=== PATIENT | male | born 1950 | race Hispanic/Latino ===

== ENCOUNTER 2017-12-13 17:45 | Emergency (ER) | payer OTHER ==
[2017-12-13] MEDS ORDERED: ONDANSETRON 4 MG/2 ML VIAL ONE (18:35)
--- NOTE | 2017-12-13 18:37 | RAD REPORT ---
EXAM DESCRIPTION: CT - Stone Protocol - 12/13/2017 6:20 pm CLINICAL HISTORY: Abdominal pain. Right-sided abdominal pain with nausea COMPARISON: None. TECHNIQUE: Computed axial tomography of the abdomen pelvis was obtained without oral or IV contrast. Lack of IV and oral contrast limits evaluation of solid organs, bowel, and vessels. Coronal reformat [place] images were obtained and reviewed. All CT scans are performed using dose optimization technique as appropriate and may include automated exposure control or mA/KV adjustment according to patient size. FINDINGS: A 2 millimeter right renal calculus is present without hydronephrosis. An ureteral calculu s is not noted. A bladder calculus is not present. The liver, spleen, pancreas and adrenals appear grossly normal There is no evidence of diverticulitis. The appendix appears normal IMPRESSION: Small nonobstructing right renal calculus
[2017-12-13 18:51] LABS: Urine Bacteria <20 /HPF (NONE SEEN); Urine RBC <5 /HPF (NONE SEEN)
[2017-12-13 18:52] LABS: Urine Amorphous Sediment 1+ /HPF (NONE SEEN); Urine Culture Reflex Order NOT NEEDED; Urine Mucus NS /HPF (NONE SEEN)
[2017-12-13 19:00] LABS: Urine Blood NEGATIVE (NEG); Urine Glucose NEGATIVE (NEG); Urine Protein NEGATIVE (NEG); Urine Specific Gravity 1.015 (1.005-1.030)
[2017-12-13 19:10] LABS: Absolute Lymphocytes (CBC) 1.7 K/uL (0.7-4.9); Absolute Monocytes 0.5 K/uL (0.1-1.3); Absolute Neutrophil 2.5 K/uL (1.8-8.0); Basophils % 0.7 % (0-1.3); Eosinophils % 3.6 % (0-4.4); Hematocrit 42.1 % (39.6-49.0); Lymphocytes % 34.8 % (15.3-44.8); MCV 89.7 fL (80-100); MPV 9.5 fL (7.6-11.3); Monocytes % 10.4 % (3.3-12.3); RBC Red Blood Cell Count 4.69 M/uL (4.33-5.43)
[2017-12-13 19:20] LABS: Potassium 3.6 mEq/L (3.6-5.0)
[2017-12-13 19:26] LABS: Albumin 4.1 g/dL (3.2-5.5); Bilirubin Direct 0.1 mg/dL (0-0.2); Bilirubin Total 0.6 mg/dL (0.3-1.2); Protein, Total 6.6 g/dL (6.0-8.3)
[2017-12-13] MEDS ORDERED: CYCLOBENZAPRINE 10 MG TAB ONE (19:48)
[2017-12-13] MEDS ORDERED: NA CHLORIDE 0.9% 500 ML ONE (19:48)
[2017-12-13] MEDS ORDERED: KETOROLAC 30 MG/ML INJ ONE (19:48)
--- NOTE | 2017-12-13 20:00 | ER ---
Nurse's Notes [facility] Name: Cali Moffett Age: 67 yrs Sex: Male : 1950 Arrival Date: 12/13/2017 Time: 17:47 Bed 19 Private MD: Diagnosis: Calculus of kidney-Right Presentation: 12/13 17:50 Presenting complaint: Patient states: Right sided flank pain for the last few hours la1 with nausea. Transition of care: patient was not received from another setting of care. Onset of symptoms was December 13, 2017. Care prior to arrival: None. 17:50 Method Of Arrival: Ambulatory la1 17:50 Acuity: JOSHUA 3 la1 Historical: - Allergies: 17:51 No Known Allergies; la1 - PMHx: 17:51 Diabetes - NIDDM; Hypertension; prostate CA; la1 - PSHx: 17:51 Prostate CA; la1 - Immunization history:: Adult Immunizations up to date. - Social history:: Smoking status: Patient/guardian denies using tobacco. Screenin:00 Abuse screen: Denies threats or abuse. Denies injuries from another. Nutritional bp screening: No deficits noted. Tuberculosis screening: No symptoms or risk factors identified. Fall Risk None identified. Assessment: 18:10 General: Appears in no apparent distress. distressed, Behavior is calm, cooperative. em Pain: Complains of pain in right mid back Pain does not radiate. Pain currently is 5 out of 10 on a pain scale. Neuro: Level of Consciousness is awake, alert, obeys commands, Oriented to person, place, time, situation. Cardiovascular: Capillary refill < 3 seconds Patient's skin is warm and dry. Respiratory: Airway is patent Respiratory effort is even, unlabored, Respiratory pattern is regular, symmetrical. GI: Abdomen is round non-distended, Bowel sounds present X 4 quads. Reports nausea. : No signs and/or symptoms were reported regarding the genitourinary system. EENT: No signs and/or symptoms were reported regarding the EENT system. Derm: Skin is intact, Skin is pink, warm \T\ dry. Musculoskeletal: Range of motion: intact in all extremities. 18:15 General: The previous assessment is accurate, call light remains within reach. . ss 19:00 Reassessment: RECD REPORT FROM DAMIAN ESCOBEDO. 67YO HM P/W R FLANK PAIN, H/O NIDDM, HTN, bp PROSTATE CA. ALL CURRENT ORDERS COMPLETED, RESULTS PENDING. Vital Signs: 17:51 BP 146 / 87; Pulse 82; Resp 16; Temp 97.7(TE); Pulse Ox 100% on R/A; Weight 78.47 kg; la1 Height 5 ft. 3 in. (160.02 cm); 19:00 BP 121 / 73; Pulse 64; Resp 16; Pulse Ox 95% on R/A; mh5 19:30 BP 118 / 79; Pulse 63; Resp 14; Pulse Ox 94% ; bp 17:51 Body Mass Index 30.65 (78.47 kg, 160.02 cm) la1 ED Course: 17:47 Patient arrived in ED. as 17:50 Juan Leon PA is PHCP. cp 17:50 Juan Sheriff MD is Attending Physician. cp 17:51 Triage completed. la1 17:52 Arm band placed on left wrist. la1 17:57 Damian Marroquin LVN is Primary Nurse. em 18:20 CT completed. Patient tolerated procedure well. Patient moved to CT via wheelchair. jg1 Patient moved back from CT. 18:20 CT Stone Protocol In Process Unspecified. EDMS 19:00 Patient has correct armband on for positive identification. Bed in low position. Call bp light in reach. Side rails up X2. Adult w/ patient. 19:01 Initial lab(s) drawn, by nj, sent to lab. Inserted saline lock: 22 gauge in right mh5 forearm, using aseptic technique. Blood collected. 19:02 Urine Dipstick--Ancillary (enter results) Sent. [facility] 19:02 Amylase, Serum Sent. [facility] 19:02 Basic Metabolic Panel Sent. [facility] 19:02 CBC with Diff Sent. [facility] 19:02 Creatinine for Radiology Sent. [facility] 19:02 Hepatic Function Sent. [facility] 19:03 Lipase Sent. [facility] 19:57 Bebeto Watters MD is Referral Physician. cp 20:00 No provider procedures requiring assistance completed. IV discontinued, intact, bp bleeding controlled, No redness/swelling at site. Pressure dressing applied. Administered Medications: 18:31 Drug: Zofran 4 mg Route: IVP; Site: right antecubital; jl7 19:40 Follow up: Response: No adverse reaction; Nausea is decreased bp 19:03 CANCELLED (Physician Discretion): TORadol 30 mg IVP once cp 19:30 Drug: TORadol 30 mg Route: IVP; Site: right antecubital; bp 19:51 Follow up: Response: No adverse reaction bp 19:30 Drug: NS 0.9% 500 ml Route: IV; Rate: bolus; Site: right antecubital; bp 20:12 Follow up: IV Status: Completed infusion bp 19:30 Drug: Flexeril 10 mg Route: PO; bp 19:51 Follow up: Response: No adverse reaction bp Outcome: 19:59 Discharge ordered by MD. cp 20:10 Discharged to home ambulatory, with family. bp 20:10 Condition: stable 20:10 Discharge instructions given to patient, Instructed on discharge instructions, follow up and referral plans. medication usage, Demonstrated understanding of instructions, follow-up care, medications, Prescriptions given X 3. 20:11 Patient left the ED. bp Signatures: Dispatcher [employer] EDGina Gibbons jg1 Damian Marroquin, ORNAMENTAL IRON WORKER APPRENTICE ORNAMENTAL IRON WORKER APPRENTICE Briana Gonzalez Shelby, RN RN ss Edward rKishna RN RN la1 Juan Leon, ENEIDA PA Neetu Gonzales [facility] Thomas Yu RN RN jl7 Mauro Mcginnis RN RN bp
--- NOTE | 2017-12-13 20:00 | EDPHYS ---
Physician Documentation [facility] Name: Cali Moffett Age: 67 yrs Sex: Male : 1950 Arrival Date: 12/13/2017 Time: 17:47 Bed 19 Private MD: ED Physician Juan Sheriff HPI: 12/13 18:00 This 67 yrs old Male presents to ER via Ambulatory with complaints of Flank cp Pain. 18:00 The patient complains of pain in the right mid back. cp 18:00 The pain does not radiate. cp 18:00 Onset: The symptoms/episode began/occurred today. Associated signs and symptoms: cp Pertinent positives: nausea, Pertinent negatives: diarrhea, dysuria, fever, pain radiating to the lower extremities, vomiting. Severity of pain: in the emergency department the pain is unchanged despite home interventions. Historical: - Allergies: 17:51 No Known Allergies; la1 - PMHx: 17:51 Diabetes - NIDDM; Hypertension; prostate CA; la1 - PSHx: 17:51 Prostate CA; la1 - Immunization history:: Adult Immunizations up to date. - Social history:: Smoking status: Patient/guardian denies using tobacco. ROS: 18:10 Eyes: Negative for injury, pain, redness, and discharge, ENT: Negative for injury, cp pain, and discharge, Cardiovascular: Negative for chest pain, palpitations, and edema, Respiratory: Negative for shortness of breath, cough, wheezing, and pleuritic chest pain. 18:10 Constitutional: Negative for body aches, chills, fever, poor PO intake. 18:10 Abdomen/GI: Positive for nausea, Negative for abdominal pain, vomiting, diarrhea, constipation, anorexia, black/tarry stool, rectal bleeding. 18:10 Back: Positive for pain at rest, of the right mid back. 18:10 : Negative for urinary symptoms, hematuria, difficulty urinating, testicular pain 18:10 Skin: Negative for cellulitis, rash. 18:10 Neuro: Negative for altered mental status, headache, weakness. 18:10 All other systems are negative. Exam: 18:12 Head/Face: Normocephalic, atraumatic. cp 18:12 Constitutional: The patient appears in no acute distress, alert, awake, non-diaphoretic, non-toxic, well developed, well nourished. 18:12 Eyes: Periorbital structures: appear normal, Conjunctiva: normal, no exudate, no injection, Sclera: no appreciated abnormality, Lids and lashes: appear normal, bilaterally. 18:12 ENT: External ear(s): are unremarkable, Nose: is normal, Mouth: Lips: moist, Oral mucosa: pink and intact, moist, Posterior pharynx: is normal, airway is patent, no erythema, no exudate, Voice: is normal. 18:12 Neck: ROM/movement: is normal, is supple, without pain, no range of motions limitations, no meningismus, no nuchal rigidity. 18:12 Chest/axilla: Inspection: normal, Palpation: is normal, no crepitus, no tenderness. 18:12 Cardiovascular: Rate: normal, Rhythm: regular, Edema: is not appreciated, JVD: is not appreciated. 18:12 Respiratory: the patient does not display signs of respiratory distress, Respirations: cp normal, no use of accessory muscles, no retractions, no splinting, no tachypnea, labored breathing, is not present, Breath sounds: are clear throughout, no decreased breath sounds, no stridor, no wheezing. 18:12 Abdomen/GI: Inspection: abdomen appears normal, Bowel sounds: active, all quadrants, Palpation: abdomen is soft and non-tender, in all quadrants, rebound tenderness, is not appreciated, voluntary guarding, is not appreciated, involuntary guarding, is not appreciated. 18:12 Back: pain, that is moderate, of the right mid back, vertebral tenderness, is not cp appreciated. 18:12 Skin: cellulitis, is not appreciated, no rash present. 18:12 Neuro: Orientation: to person, place \T\ time. Mentation: is normal, Motor: moves all fours, strength is normal, Sensation: no obvious gross deficits, Gait: is steady, at a normal pace, without difficulty. Vital Signs: 17:51 BP 146 / 87; Pulse 82; Resp 16; Temp 97.7(TE); Pulse Ox 100% on R/A; Weight 78.47 kg; la1 Height 5 ft. 3 in. (160.02 cm); 19:00 BP 121 / 73; Pulse 64; Resp 16; Pulse Ox 95% on R/A; mh5 19:30 BP 118 / 79; Pulse 63; Resp 14; Pulse Ox 94% ; bp 17:51 Body Mass Index 30.65 (78.47 kg, 160.02 cm) la1 MDM: 17:52 Patient medically screened. cp 18:00 Differential diagnosis: nephrolithiasis, pyelonephritis, UTI, diverticulitis, cp pancreatitis, ruptured AAA, dissecting AAA. 19:58 Data reviewed: vital signs, nurses notes, lab test result(s), radiologic studies, CT cp scan. 19:58 Counseling: I had a detailed discussion with the patient and/or guardian regarding: the cp historical points, exam findings, and any diagnostic results supporting the discharge/admit diagnosis, lab results, radiology results, to return to the emergency department if symptoms worsen or persist or if there are any questions or concerns that arise at home. Response to treatment: the patient's symptoms have markedly improved after treatment, and as a result, I will discharge patient. 12/13 18:05 Order name: Amylase, Serum; Complete Time: 19:35 cp 12/13 18:05 Order name: Basic Metabolic Panel; Complete Time: 19:35 cp 12/13 19:35 Interpretation: Normal except: GLUC 162; BUN 26; GFR 74. cp 12/13 18:05 Order name: CBC with Diff; Complete Time: 19:35 cp 12/13 18:05 Order name: Creatinine for Radiology; Complete Time: 19:35 cp 12/13 18:05 Order name: Hepatic Function; Complete Time: 19:35 cp 12/13 18:05 Order name: Lipase; Complete Time: 19:35 cp 12/13 18:05 Order name: Urine Microscopic Only; Complete Time: 19:02 cp 12/13 19:02 Interpretation: Reviewed. cp 12/13 18:05 Order name: CT Stone Protocol; Complete Time: 19:02 cp 12/13 18:50 Order name: Urine Dipstick--Ancillary (enter results); Complete Time: 19:57 ag 12/13 18:50 Order name: Urine Dipstick-Ancillary; Complete Time: 19:02 EDMS 12/13 18:05 Order name: IV Saline Lock; Complete Time: 19:06 cp 12/13 18:05 Order name: Labs collected and sent; Complete Time: 19:06 cp 12/13 18:05 Order name: Urine Dipstick-Ancillary (obtain specimen); Complete Time: 19:06 cp Administered Medications: 18:31 Drug: Zofran 4 mg Route: IVP; Site: right antecubital; jl7 19:40 Follow up: Response: No adverse reaction; Nausea is decreased bp 19:03 CANCELLED (Physician Discretion): TORadol 30 mg IVP once cp 19:30 Drug: TORadol 30 mg Route: IVP; Site: right antecubital; bp 19:51 Follow up: Response: No adverse reaction bp 19:30 Drug: NS 0.9% 500 ml Route: IV; Rate: bolus; Site: right antecubital; bp 20:12 Follow up: IV Status: Completed infusion bp 19:30 Drug: Flexeril 10 mg Route: PO; bp 19:51 Follow up: Response: No adverse reaction bp Disposition: 12/13/17 19:59 Discharged to Home. Impression: Calculus of kidney - Right. - Condition is Stable. - Discharge Instructions: Kidney Stones. - Prescriptions for tamsulosin 0.4 mg Oral capsule,extended release 24hr - take 1 capsule by ORAL route once daily 1/2 hour following the same meal each day; 30 capsule. Zofran 4 mg Oral Tablet - take 1 tablet by ORAL route every 12 hours As needed; 20 tablet. Tramadol 50 mg Oral Tablet - take 1 tablet by ORAL route every 8 hours as needed; 12 tablet. - Medication Reconciliation Form, Thank You Letter, Antibiotic Education, Prescription Opioid Use form. - Follow up: Bebeto Watters MD; When: 2 - 3 days; Reason: if pain continues. - Problem is new. - Symptoms have improved. Addendum: 12/16/2017 08:36 Co-signature as Attending Physician, Juan Sheriff MD I agree with the assessment and c machado plan of care. Signatures: Dispatcher [employer] EDJuan Prather MD MD cha Attema, Lee, RN RN la1 Juan Leon PA PA cp Thomas Yu RN RN jl7 Mauro Mcginnis RN RN bp Corrections: (The following items were deleted from the chart) 12/13 19:03 19:03 TORadol 30 mg IVP once ordered. cp cp
== END 2017-12-13 20:11 | disposition home or self-care (01) ==
LOC: ER 17:45
DX: N20.0 Calculus of kidney (principal); I10 Essential (primary) hypertension; Z85.46 Personal history of malignant neoplasm of prostate
CPT/HCPCS: 36415; 74176; 76377; 80048; 80076; 82150; 83690; 85025; 96361; 96374; 96375; 99284; J2405; 81003; 81015